=== PATIENT | female | born 1965 | race African-American/Black ===

== ENCOUNTER 2022-02-03 13:07 | Emergency (ER) | payer OTHER ==
[2022-02-03 13:20] VITALS: BP 129/83; PULSE 73; TEMP 98; BMI 38.2
== END 2022-02-03 14:01 | disposition home or self-care (01) ==
LOC: JERFT 13:07
DX: M54.50 Low back pain, unspecified (principal); V79.50XA Passenger on bus injured in collision with unspecified motor vehicles in traffic accident, initial encounter
CPT/HCPCS: 99283-25

== ENCOUNTER 2023-12-09 09:51 | Emergency (ER) | payer SELFPAY ==
[2023-12-09 09:58] VITALS: BP 143/78; PULSE 88; RESP 18; TEMP 99.5; BMI 33.9
[2023-12-09] MEDS ORDERED: IBUPROFEN 600 MG TABLET (FP) PO ONE (10:09)
[2023-12-09] MEDS: IBUPROFEN 600 MG TABLET (FP) PO ONE (10:13)
== END 2023-12-09 10:43 | disposition home or self-care (01) ==
LOC: JERFT 09:51
DX: R51.9 Headache, unspecified (principal); R05.9 Cough, unspecified; R50.9 Fever, unspecified; M79.10 Myalgia, unspecified site; J06.9 Acute upper respiratory infection, unspecified; Z20.822 Contact with and (suspected) exposure to COVID-19
CPT/HCPCS: 0241U-QW; 99283-25